=== PATIENT | male | born 1945 | race Caucasian/White ===

== ENCOUNTER → 2018-01-03 08:57 | Outpatient (CLI) | payer MEDICARE, OTHER, SELFPAY ==
--- NOTE | 2018-01-03 09:18 | HTC.HP4 ---
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 Grandfather Hemophilia Allergies/Adverse Reactions: Allergy/AdvReac Type Severity Reaction Status Date / Time Penicillins AdvReac Other Verified 01/03/18 12:48 Risk Factors Social History Smoking Status Never smoker Tobacco Risk Data: Tobacco Risk Smoking Status Never smoker Type of tobacco: Smokeless tobacco usage: Never Items/Day: Year started: Years used: Counseled to quit/cut down: Reason for no counseling performed: Reason for no pharmacotherapy: Tobacco use comments: Passive smoke exposure: Substance Risk Drug use: Caffeine use [drinks/day]: Alcohol use: Type of alcohol: Drinks per day: Has patient felt the need to cut down: Has the patient been annoyed by complaints: Has the patient felt guilty about drinking: Has the patient needed an eye internet security specialist in the mornings: Comments: Review of Systems Constitutional:: Denies: Fever, Sweats, Weight loss, Appetite change, Chills Cardiovascular:: Denies: Chest pain, Palpitations, Dyspnea on exertion, Orthopnea, PND, Shortness of breath Respiratory: Denies: Cough, Hemoptysis, Shortness of Breath, Wheezing Gastrointestinal:: Denies: Abdominal pain, Nausea, Vomiting, Diarrhea, Constipation, Hematochezia Genitourinary: Denies: Dysuria, Hematuria, 15, Flank pain Musculoskeletal:: Reports: Arthritis - right knee, may need surgery Occasional use of NSAIDS, Arthralgia, Restless legs. Denies: Back pain, Myalgia Skin: Denies: Rash, Skin Changes, Wounds Neurological:: Denies: Headache, Dizziness, Visual changes, Tinnitus, Hearing loss Psychiatric: Denies: Anxiety, Depression, Homicidal Ideations, Suicidal Ideations Comment: Took factor prior to colonoscopy. 2 accidental falls,. most recent injured left elbow, did not take factor. - Physical Exam General: Alert, Oriented x3, No apparent distress HEENT: Atraumatic, PERRLA, EOMI, Normocephalic Oropharynx:: Dry mucosa Neck:: Supple, Trachea midline. Negative for: JVD, bilateral Cardiac:: Regular rate, Regular rhythm, Normal S1, Normal S2. Negative for: Murmur Lungs: Clear to auscultation, Excusion symmetrical. Negative for: Rhonchi, Wheezes Abdomen:: Bowel sounds x 4, Soft, Non-tender, Non-distended. Negative for: Hepatosplenomegaly Extremities:: - - 2 cm left elbow hematoma, uncoplicated. Negative for: Cyanosis, Edema Neurological: Neuro grossly intact Skin:: Negative for: Lesions, Rash, Petechiae, Ecchymosis Psychiatric:: Appropriate affect, Euthymic Lymphatics:: Negative for: Cervical lymphadenopathy, Supraclavicular lymphadenopathy, Axillary lymphadenopathy Assessment and Plan Hemophilia annual screening visit. Reviewed: - On-demand therapy. - Appropriate oral hygiene and regular dental care is essential. - An appropriate exercise regimen encouraged for maintenance of a healthy weight, cardiovascular risk reduction, and positive effects on strength, flexibility, balance, joint stabilization, bone density, socialization, and psychological health. - Medicines that increase the risk of bleeding should be avoided namely anticoagulants, aspirin, and other nonsteroidal anti-inflammatory drugs (NSAIDs). - Herbal remedies and nfzc-dpq-eqbdlno supplements such as fish oil, may increase bleeding risk. - Pain can be treated with local measures (eg, cold packs, immobilization, splinting), and acetaminophen. - Cardiovascular disease prevention : focus on diet, exercise, smoking avoidance, and control of hypertension and hypercholesterolemia. - Planning for invasive procedures and elective surgery. - Caution with NSAIDS for DJD, - OFF ASA (was Rx following [facility]), due to bleeding with minor injuries. Patient was also evaluated by the Hemophilia multidisciplinary team on site and Dr Tello via video conferencing. Medications: Prescriptions This Visit Medication Instructions Recorded Aspirin [Aspir-Low] 81 mg PO DAILY 11/11/17 Primary Care Provider: Thang Tan Referring Provider:
[2018-01-03 12:49] VITALS: BP 112/74; PULSE 76; RESP 16; TEMP 36.6; O2SAT 96; BMI 28.6
== END ==
PROVIDERS: Family Provider Family Medicine; PCP Family Medicine; Visit Provider Internal Medicine Hematology & Oncology
DX: D67 Hereditary factor IX deficiency (principal)

== ENCOUNTER → 2018-08-08 10:41 | Outpatient (CLI) | payer MEDICARE, OTHER, SELFPAY ==
[2018-01-03 12:49] VITALS: BMI 28.6
--- NOTE | 2018-08-08 10:49 | RAD_ITS ---
STUDY: X-RAY CHEST REASON FOR EXAM: Male, 72 years old. Preop TECHNIQUE: Frontal and lateral views COMPARISON: None. FINDINGS: The lungs are clear and expanded. There is no demonstrated pleural abnormality. Normal size heart. Normal mediastinum and doug. Normal visualized pulmonary arteries. Normal visualized aortic arch and descending thoracic aorta. Degenerative changes of the thoracic spine. Normal visualized ribs, clavicles, and shoulders. There is no demonstrated abnormality of the visualized soft tissue structures of the upper abdomen. RAD/Chest PA and Lateral IMPRESSION: Normal x-ray examination of the chest. Electronically Signed: Alexandro Ahumada DO at 9:09 EST Tel [phone], Service support ,
--- NOTE | 2018-08-08 11:04 | EKG12_ITS ---
Test Reason : PRE OP Blood Pressure : / mmHG Vent. Rate : 062 BPM Atrial Rate : 062 BPM P-R Int : 180 ms QRS Dur : 140 ms QT Int : 400 ms P-R-T Axes : 043 -75 011 degrees QTc Int : 406 ms Normal sinus rhythm Right bundle branch block Left anterior fascicular block Bifascicular block Abnormal ECG Confirmed by MICHEAL PRITCHETT, JOHN ([id number]), publications editor FRANKIE WESTON ([id number]) on 08/12/2018 2:15:24 PM Referred By: Navdeep Weston Confirmed By:JOHN BURTON MD
--- OUTSIDE RECORDS SUMMARY | 2018-10-03 06:51 | XMS RPT_ITS ---
:1945 Author Organization [facility] Care Team Providers Name Role Phone Tavo Burton Attending Unavailable Navdeep Rodriguez Referring Unavailable Thang Tan Attending Unavailable Thang Tan Primary Care Unavailable Jacinto Lobato Attending Unavailable Thang Tan Primary Care Unavailable Jacinto Lobato Attending Unavailable Thang Tan Primary Care Unavailable Jacinto Lobato Consulting Unavailable Navdeep Rodriguez Attending Unavailable Navdeep Rodriguez Referring Unavailable Thang Tan Primary Care Unavailable PROBLEMS PROBLEMS DATE TYPE CONDITION / CODE ATTENDING STATUS SOURCE 08/18/2018 Unknown I45.10 - Unspecified [place], Active [facility] right bundle-branch [facility] block / I45.10(ICD-10) Hospital Repository 08/18/2018 Unknown R94.31 - Abnormal [place], Active [facility] electrocardiogram [facility] [ECG] [EKG] / Hospital R94.31(ICD-10) Repository 08/08/2018 Unknown Z01.810 - Encounter Navdeep Rodriguez Active [facility] for preprocedural [facility] cardiovascular [facility] examination / Repository Z01.810(ICD-10) 08/08/2018 Unknown Z01.811 - Encounter Navdeep Rodriguez Active [facility] for preprocedural [facility] examination / Repository Z01.811(ICD-10) PROCEDURES PROCEDURES No Procedure Records FoundRESULTS RESULTS 12 LEAD ELECTROCARDIOGRAM Observed: 08/12/2018 Status: F Source: [place] 2:16 PM [facility] Cardiovascular Services [address] [place] [address] 12 Lead EKG 08/08/18 1116 MR#: [id number] Acct: [id number] Name: REMY FINNEGAN Rep #: [id number] : 1945 72 From: Tavo Burton MD Attending Dr: Navdeep Rodriguez MD Status: REG CLI Ordering Dr: Navdeep Rodriguez MD Date: 08/08/18 Location: [facility] Sex: M C Admitted: Test Reason : PRE OP Blood Pressure : / mmHG Vent. Rate : 062 BPM Atrial Rate : 062 BPM P-R Int : 180 ms QRS Dur : 140 ms QT Int : 400 ms P-R-T Axes : 043 -75 011 degrees QTc Int : 406 ms Normal sinus rhythm Right bundle branch block Left anterior fascicular block Bifascicular block Abnormal ECG Confirmed by MICHEAL PRITCHETT, TAVO ([id number]), editor department FRANKIE RODRIGUEZ ([id number]) on 08/12/2018 2:15:24 PM Referred By: Navdeep Rodriguez Confirmed By:TAVO BURTON MD 08/12/18 1415 Date Tavo Burton MD CC: Thang Tan MD; Navdeep Rodriguez MD Signed CHEST PA AND LATERAL Observed: 08/08/2018 Status: F Source: [place] 10:50 AM [facility] Imaging Services [address] [place] [address] Chest PA and Lateral MR#: [id number] Acct: [id number] Name: REMY FINNEGAN Rep #: [id number] : 1945 M 72 From: Alexandro Ahumada DO PCP: Thang Tan MD Status: REG CLI Study: Chest PA and Lateral Date of Exam: 08/08/18 Exam# [id number] Ordering Dr: Navdeep Rodriguez MD STUDY: X-RAY CHEST REASON FOR EXAM: Male, 72 years old. Preop TECHNIQUE: Frontal and lateral views COMPARISON: None. FINDINGS: The lungs are clear and expanded. There is no demonstrated pleural abnormality. Normal size heart. Normal mediastinum and doug. Normal visualized pulmonary arteries. Normal visualized aortic arch and descending thoracic aorta. Degenerative changes of the thoracic spine. Normal visualized ribs, clavicles, and shoulders. There is no demonstrated abnormality of the visualized soft tissue structures of the upper abdomen. RAD/Chest PA and Lateral IMPRESSION: Normal x-ray examination of the chest. Electronically Signed: Alexandro Ahumada DO at 9:09 EST Tel [phone], Service support , CC: Thang Tan MD; Navdeep Rodriguez MD Unix Administrator: Signed C: OFFICE NOTE Observed: 01/03/2018 Status: F Source: JULIAN 1:21 PM [facility] Medical Records Department [address] [place] [address] HTC: Office Note 01/03/18 0918 MR#: [id number] Acct: [id number] Name: REMY FINNEGAN Rep #: [id number] : 1945 72 From: Jacinto Lobato MD PCP: Thang Tan MD Status: REG CLI Y Location: [facility]MD - Problem List (1) Hemophilia B Status: Chronic Subjective Date of Service:: 01/03/18 Chief Complaint: Hemophilia follow-up History of Present Illness: 72-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 Grandfather Hemophilia Allergies/Adverse Reactions: Allergy/AdvReac Type Severity Reaction Status Date / Time Penicillins AdvReac Other Verified 01/03/18 12:48 Risk Factors Social History Smoking Status Never smoker Tobacco Risk Data: Tobacco Risk Smoking Status Never smoker Type of tobacco: Smokeless tobacco usage: Never Items/Day: Year started: Years used: Counseled to quit/cut down: Reason for no counseling performed: Reason for no pharmacotherapy: Tobacco use comments: Passive smoke exposure: Substance Risk Drug use: Caffeine use [drinks/day]: Alcohol use: Type of alcohol: Drinks per day: Has patient felt the need to cut down: Has the patient been annoyed by complaints: Has the patient felt guilty about drinking: Has the patient needed an eye manager inspection in the mornings: Comments: Review of Systems Constitutional:: Denies: Fever, Sweats, Weight loss, Appetite change, Chills Cardiovascular:: Denies: Chest pain, Palpitations, Dyspnea on exertion, Orthopnea, PND, Shortness of breath Respiratory: Denies: Cough, Hemoptysis, Shortness of Breath, Wheezing Gastrointestinal:: Denies: Abdominal pain, Nausea, Vomiting, Diarrhea, Constipation, Hematochezia Genitourinary: Denies: Dysuria, Hematuria, 15, Flank pain Musculoskeletal:: Reports: Arthritis - right knee, may need surgery Occasional use of NSAIDS, Arthralgia, Restless legs. Denies: Back pain, Myalgia Skin: Denies: Rash, Skin Changes, Wounds Neurological:: Denies: Headache, Dizziness, Visual changes, Tinnitus, Hearing loss Psychiatric: Denies: Anxiety, Depression, Homicidal Ideations, Suicidal Ideations Comment: Took factor prior to colonoscopy. 2 accidental falls,. most recent injured left elbow, did not take factor. - Physical Exam General: Alert, Oriented x3, No apparent distress HEENT: Atraumatic, PERRLA, EOMI, Normocephalic Oropharynx:: Dry mucosa Neck:: Supple, Trachea midline. Negative for: JVD, bilateral Cardiac:: Regular rate, Regular rhythm, Normal S1, Normal S2. Negative for: Murmur Lungs: Clear to auscultation, Excusion symmetrical. Negative for: Rhonchi, Wheezes Abdomen:: Bowel sounds x 4, Soft, Non-tender, Non-distended. Negative for: Hepatosplenomegaly Extremities:: - - 2 cm left elbow hematoma, uncoplicated. Negative for: Cyanosis, Edema Neurological: Neuro grossly intact Skin:: Negative for: Lesions, Rash, Petechiae, Ecchymosis Psychiatric:: Appropriate affect, Euthymic Lymphatics:: Negative for: Cervical lymphadenopathy, Supraclavicular lymphadenopathy, Axillary lymphadenopathy Assessment and Plan Hemophilia annual screening visit. Reviewed: - On-demand therapy. - Appropriate oral hygiene and regular dental care is essential. - An appropriate exercise regimen encouraged for maintenance of a healthy weight, cardiovascular risk reduction, and positive effects on strength, flexibility, balance, joint stabilization, bone density, socialization, and psychological health. - Medicines that increase the risk of bleeding should be avoided namely anticoagulants, aspirin, and other nonsteroidal anti-inflammatory drugs (NSAIDs). - Herbal remedies and idnk-jqn-lychqyg supplements such as fish oil, may increase bleeding risk. - Pain can be treated with local measures (eg, cold packs, immobilization, splinting), and acetaminophen. - Cardiovascular disease prevention : focus on diet, exercise, smoking avoidance, and control of hypertension and hypercholesterolemia. - Planning for invasive procedures and elective surgery. - Caution with NSAIDS for DJD, - OFF ASA (was Rx [facility]), due to bleeding with minor injuries. Patient was also evaluated by the Hemophilia multidisciplinary team on site and Dr Tello via video conferencing. Medications: Prescriptions This Visit Medication Instructions Recorded Aspirin [Aspir-Low] 81 mg PO DAILY 11/11/17 Primary Care Provider: Thang Tan Referring Provider: 01/03/18 1321 <Electronically signed by Jacinto Lobato MD> Date Jacinot Lobato MD Cosigner Signature (if applicable): Date CC: Signed CBC-COMPLETE BLOOD CNT Collected: 09/17/2017 Status: F Source: [place] NO DIFF 10:32 AM [facility] Order Comment: Order Date: 09/17/17 Order Info: [id number] - CBC TYPE CODE TESTS RESULT OUT OF RANGE REFERENCE UNITS LAB L100.1000 4.4-11.0 K/mm3 Normal WBC 6.5 LAB L100.1200 4.6-6.2 M/mm3 Low RBC 4.31 LAB L100.1300 13.0-16.5 g/dl Normal HGB 13.1 LAB L100.1400 40-54 % Normal HCT 40.2 LAB L100.1500 80-94 fL Normal MCV 93.3 LAB L100.1600 27.0-32.0 pg Normal MCH 30.4 LAB L100.1700 32-36 g/gl Normal MCHC 32.6 LAB L100.1810 11.6-14.6 % Normal RDW CV 13.3 LAB L100.1820 35.1-43.9 fl High RDW SD 45.5 LAB L100.1900 150-450 K/mm3 Normal PLT 247 LAB L100.2000 6.2-12.0 fl Normal MPV 9.4 Performed By: #### L100.0500, L500.4050 #### [facility] [address] [place], [place], [address] COMPREHENSIVE METABOLIC Collected: 09/17/2017 Status: F Source: [place] PROFIL 10:32 AM [facility] Order Comment: Order Date: 09/17/17 Order Info: [id number] - CMP TYPE CODE TESTS RESULT OUT OF RANGE REFERENCE UNITS LAB L501.0100 70-110 mg/dL Normal GLU 84 LAB L501.1000 7-18 mg/dL Normal BUN 17 LAB L501.1100 0.70-1.30 mg/dL Normal 0.70 CREAT,SERUM Result Comment: The validity of the calculated GFR AND GFRAA in patients over 70 years has not been determined. Clinical correlation is essential. LAB L501.1110 >60 mL/min Normal EST GFR 119 Result Comment: Non- GFR Calc LAB L501.1115 >60 mL/min Normal EST GFR - AA 144 Result Comment: GFR Calc LAB L501.1300 10-20 RATIO High BUN/CRE 24.4 LAB L501.1500 6.4-8.2 g/dL T Normal PROT 7.3 LAB L501.1800 3.4-5.0 g/dL Normal ALB 3.7 Result Comment: Please note revised Albumin AND Globulin reference range effective 2017. LAB L501.1950 2.2-4.2 g/dL Normal GLOB 3.6 LAB L501.2000 0.9-2.4 RATIO Normal A/G 1.0 LAB L501.2200 8.5-10.1 mg/dL Normal CA 8.6 LAB L501.4100 15-37 U/L Normal AST 19 LAB L501.4305 45-117 U/L Normal ALK P 74 LAB L501.4405 12-78 U/L Normal ALT 36 LAB L501.4600 0.20-1.00 mg/dL Normal T BILI 0.60 LAB L501.5300 136-145 mmol/L Normal NA 139 LAB L501.5600 3.5-5.1 mmol/L Normal K 4.3 LAB L501.5900 98-107 mmol/L Normal CL 106 LAB L501.6100 21.0-32.0 mmol/L Normal CO2 24.0 LAB L501.6200 5-15 Normal GAP 9 Performed By: #### L100.0500, L500.4050 #### [facility] [address] [place], [address] ALLERGIES ALLERGIES DATE TYPE / CODE NAME / CODE REACTION SEVERITY SOURCE 01/03/2018 Drug Penicillins/ Other Unknown [facility] Allergy/4160 [id number](R [facility] [address]37(SNOMED XNORM) Repository CT) ENCOUNTERS ENCOUNTERS ADMIT/DISCHARGE ACCOUNT ADMITTING ENCOUNTER LOCATION SOURCE NUMBER CLASS 08/08/2018 [id number] Ambulatory BMSBuilding:W [facility] 6 [facility] Repository 08/08/2018 [id number] Ambulatory [place] [facility] 2 [facility] ing:RAD Repository 01/03/2018 [id number] Ambulatory [place] 0 [facility] ing:OMD Repository 01/03/2018 [id number] Ambulatory BMSBuilding:B [place] 1 MS.[facility] Repository 09/17/2017 [id number] Ambulatory [facility] 5 [facility] ing:MFPLAB Repository PAYERS PAYERS ENCOUNTER GUARANTOR PAYER SUBSCRIBER SOURCE 08/08/2018 [place] A Primary REMY A [place] [id number] Insurance:MEDICARE TROYERDOB: Community FREASE PART A [address] Number: Repository , [place] [address]Fua: [id number] Date:2018-08-08 () 08/08/2018 Secondary REMY A [place] Insurance:AETNA SR TROYERDOB: [facility] SUPPLEMENT [place] [id number] [place] [address] Number: Repository [id number] Date:[id number] SENIOR SUPPLEMENT [address] [place] [address]YB: 08/08/2018 Tertiary NOT GIVENUNK [facility] Insurance:SELF PAY [facility] Number: Effective Repository Date:2018-08-08 08/08/2018 REMY A Primary REMY A [facility] [id number] Insurance:MEDICARE TROYERDOB: Community FREASE PART A [place] [id number] Number: Repository , [place] [address]Rhv: [id number] Date:2018-08-08 () 08/08/2018 Secondary REMY A [place] Insurance:AETNA SR TROYERDOB: [facility] SUPPLEMENT [place] [id number] Number: Repository [id number] Date:6114-11-76REKIP SENIOR SUPPLEMENT [address] [place] [address]MI: 08/08/2018 Tertiary NOT GIVENUNK [place] Insurance:SELF PAY [facility] Number: Effective Repository Date:2018-08-08 01/03/2018 Remy A Primary Remy A [place] [id number] Insurance:MEDICARE TroyerDOB: Community FREASE PART A [address] Number: Repository , [place] [address]Ozs: [id number] Date:2017-10-14 () 01/03/2018 Secondary Remy A [place] Insurance:AETNA SR TroyerDOB: [id number] Number: Repository [id number] Date:[id number] SENIOR SUPPLEMENT [address] [address], [place] [address]FF: 01/03/2018 Tertiary NOT GIVENUNK [facility] Insurance:SELF PAY [facility] Effective Repository Date:2017-10-14 01/03/2018 Remy A Primary Remy A [place] [id number] Insurance:MEDICARE TroyerDOB: Community FREASE PART A [facility] [id number] Number: Repository [place], [place] [address]Vho: [id number] Date:2017-10-14 () 01/03/2018 Secondary Remy A [place] Insurance:AETNA SR TroyerDOB: Community SUPPLEMENT [facility] [id number] Number: Repository [id number] Date:[id number] SENIOR SUPPLEMENT [address] [address], [place] [address]CC: 01/03/2018 Tertiary NOT GIVENUNK [place] Insurance:SELF PAY [facility] Number: Effective Repository Date:2018-01-03 09/17/2017 Remy A Primary Remy A [place] [id number] Insurance:MEDICARE TroyerDOB: Community Frease PART A [facility] [id number] Number[facility] Repository , [place] [address]Zvt: [id number] Date:2017-09-17 () 09/17/2017 Secondary Remy A [place] Insurance:AETNA SR TroyerDOB: Community SUPPLEMENT [facility] [id number] Hospital Number: Repository [id number] Date:[id number] SENIOR SUPPLEMENT [address] [address], [place] [address]IY: 09/17/2017 Tertiary NOT GIVENUNK [place] Insurance:SELF PAY [facility] Number: Effective Repository Date:2017-09-17
== END ==
PROVIDERS: Family Provider Family Medicine; PCP Family Medicine; Referring Provider Orthopaedic Surgery; Visit Provider Orthopaedic Surgery
DX: Z01.810 Encounter for preprocedural cardiovascular examination (principal); Z01.811 Encounter for preprocedural respiratory examination
CPT/HCPCS: 71046; 93005

== ENCOUNTER → 2018-10-09 06:54 | Outpatient (CLI) | payer MEDICARE, OTHER, SELFPAY ==
[2018-09-25 15:01] VITALS: BMI 29.0
--- NOTE | 2018-10-09 06:58 | ECHOD_ITS ---
Reason For Study: CAD/ASHD Procedure This was a 2D Doppler, Color Flow transthoracic echocardiogram. The exam was of adequate technical quality. Exam performed in department. Left Ventricle Normal LV size. Left ventricular systolic function is normal. The estimated ejection fraction is 60 %. No evidence for diastolic dysfunction. No regional wall motion abnormalities noted. Right Ventricle Normal RV size. Normal systolic function. Atria The left atrium is mildly enlarged. Normal right atrium. No doppler evidence for ASD. Mitral Valve There is no mitral annular calcification. Normal mitral valve. Trivial mitral valve insufficiency. Tricuspid Valve Normal tricuspid valve. Trivial tricuspid valve insufficiency. Aortic Valve Trisinus/trileaflet aortic valve. Moderate focal aortic valve calcification. Trivial aortic valve insufficiency. Pulmonic Valve The pulmonic valve is not well visualized. Great Vessels Normal sized aortic root. Calcified aortic root. Pericardium/Pleural No pericardial effusion. MMode/2D Measurements & Calculations LVIDd: 5.1 cm IVSd: 1.1 cm Ao root diam: 3.4 cm LVIDs: 3.5 cm LVPWd: 1.1 cm RVDd: 3.2 cm FS: 31.1 % LAV(MOD-bp): 56.8 ml LA A4 area: 20.1 cm2 LA dimension(2D): 3.5 cm LAV(MOD-bp) Indexed: 27.2 ml/m2 LAV(MOD-sp2): 51.4 ml LAV(MOD-sp4): 59.1 ml RA A4 area: 16.1 cm2 Doppler Measurements & Calculations MV E max duncan: 83.9 cm/sec Lat Peak E' Duncan: 8.3 cm/sec Med Peak E' Duncan: 6.8 cm/sec MV A max duncan: 95.0 cm/sec E/E' lat: 10.0 E/E' med: 12.3 MV E/A: 0.88 Ao V2 max: 150.5 cm/sec LV V1 max: 143.8 cm/sec PA V2 max: 69.1 cm/sec Ao max P.1 mmHg LV V1 max P.7 mmHg Interpretation Summary Left ventricular systolic function is normal. The estimated ejection fraction is 60 %. The left atrium is mildly enlarged. Trivial mitral valve insufficiency. Trivial tricuspid valve insufficiency. Moderate focal aortic valve calcification. Trivial aortic valve insufficiency. Calcified aortic root. No evidence for diastolic dysfunction. Ordering Physician: Tavo Nuñez Referring Physician: Thang Tan Performed By: Leatha Love RDCS, RVT
--- NOTE | 2018-10-09 19:59 | STRESSREP ---
Stress Test Report Date: October 09, 2018 Procedure: Pharmacologic stress nuclear imaging study Indication: Abnormal ECG; preoperative cardiovascular evaluation Consent: Per the patient Procedure: The patient underwent pharmacologic (regadenoson) evaluation with a peak heart rate of 92 beats per minute (67% predicted maximal heart rate) with a peak blood pressure of 142/80 mmHg. The baseline ECG demonstrated underlying sinus bradycardia with a right bundle branch block pattern. The peak pharmacological ECG demonstrated no obvious ECG changes. There were no cardiac dysrhythmias pretest, during pharmacologic infusion, or recovery. There was no report of chest discomfort during pharmacologic infusion or recovery. The examination was discontinued secondary to completion of protocol. Impression: 1. Pharmacologic (regadenoson (evaluation 2. Peak pharmacologic ECG with no obvious ECG changes 3. Nuclear images pending Myocardial perfusion imaging study: Technique: The patient was injected with 11.8 mci of technetium 99 M Cardiolite and subsequently rest SPECT Cardiolite nuclear imaging was obtained in the horizontal long, vertical long, and short axis views. The patient underwent pharmacologic (regadenoson (evaluation with a peak heart rate of 92 beats per minute (67% predicted maximal heart rate) with a peak blood pressure of 142/80 mmHg. The patient was injected with 33.9 mci of technetium 99 M Cardiolite and subsequently stress SPECT Cardiolite nuclear imaging was obtained in the horizontal long, vertical long, and short axis views. A gated Cardiolite study at peak stress was obtained. Interpretation: Rest and stress SPECT currently nuclear imaging demonstrates status post realignment, normalization, and attenuation correction, the appearance of extra cardiac/gastrointestinal tracer uptake. There is notation of a small area of subtle diminished tracer uptake near the apical segments without significant change between rest and stress. Otherwise there appears to be relative uniform tracer uptake and myocardial perfusion appearing within normal limits. There is end systolic thickening and brightening. The gated Cardiolite study demonstrates myocardial thickening and inward wall motion. The reported LVEF is 71%. Impression: 1. Rest and stress SPECT pertinent nuclear imaging demonstrate myocardial perfusion changes appearing compatible the Effexor soft tissue attenuation/artifact and or physiologic apical thinning with no myocardial perfusion changes considered diagnostic for associated stress induced myocardial ischemia or previous myocardial injury/infarction. 2. The gated Cardiolite study reports an LVEF of 71%. This note was generated using a voice recognition system and there may be incorrect words, spelling or punctuation that were not noted when reviewing the office note prior to saving.
== END ==
PROVIDERS: Family Provider Family Medicine; PCP Family Medicine; Referring Provider Internal Medicine Cardiovascular Disease; Visit Provider Internal Medicine Cardiovascular Disease
DX: Z01.810 Encounter for preprocedural cardiovascular examination (principal); R94.31 Abnormal electrocardiogram [ECG] [EKG]
CPT/HCPCS: 78452; 93017; 93306; A9500; A4216; J2785

== ENCOUNTER → 2018-12-25 10:57 | Outpatient (CLI) | payer MEDICARE, OTHER, SELFPAY ==
[2018-09-25 15:01] VITALS: BMI 29.0
== END ==
PROVIDERS: Family Provider Family Medicine; PCP Family Medicine; Referring Provider Internal Medicine Hematology & Oncology; Visit Provider Internal Medicine Hematology & Oncology
DX: D67 Hereditary factor IX deficiency (principal)

== ENCOUNTER → 2019-01-02 11:38 | Outpatient (CLI) | payer MEDICARE, OTHER, SELFPAY ==
[2018-09-25 15:01] VITALS: BMI 29.0
--- NOTE | 2019-01-02 08:39 | HTC.HP4 ---
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, annual follow-up Right knee replacement December 2018 recovering well, received factor perioperatively and did well On low-dose aspirin for DVT prophylaxis postop Health History: Past Medical History (Last Reviewed 09/25/18 @ 15:03 by Jennifer Osuna) Left anterior fascicular block (LAFB) (Acute) LBBB (left bundle branch block) (Acute) Abnormal EKG (Acute) Hemophilia B (Acute) Hepatitis (Acute) Hyperlipidemia (Acute) Polio (Acute) Right wrist injury (Acute) Stroke (Acute) Family History (Last Reviewed 09/25/18 @ 15:03 by Jennifer Osuna) Brother Hemophilia Grandfather Hemophilia Mother Diabetes CVA (cerebral vascular accident) Allergies/Adverse Reactions: Allergy/AdvReac Type Severity Reaction Status Date / Time atorvastatin AdvReac Severe Rt Verified 09/25/18 15:01 shoulder pain pitavastatin [From Livalo] AdvReac Severe muscle Verified 09/25/18 15:01 weakness aspirin AdvReac Bleeding Verified 01/02/19 11:51 Penicillins AdvReac Other Verified 09/25/18 15:01 Risk Factors Social History Smoking Status Never smoker Tobacco Risk Data: Tobacco Risk Smoking Status Never smoker Type of tobacco: Smokeless tobacco usage: Items/Day: Year started: Years used: Counseled to quit/cut down: Reason for no counseling performed: Reason for no pharmacotherapy: Tobacco use comments: Passive smoke exposure: Substance Risk Drug use: Caffeine use [drinks/day]: Alcohol use: Type of alcohol: Drinks per day: Has patient felt the need to cut down: Has the patient been annoyed by complaints: Has the patient felt guilty about drinking: 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: Comments: Review of Systems Constitutional:: Denies: Fever, Sweats, Weight loss, Appetite change, Chills Cardiovascular:: Denies: Chest pain, Palpitations, Dyspnea on exertion, Orthopnea, PND, Shortness of breath Respiratory: Denies: Cough, Hemoptysis, Shortness of Breath, Wheezing Gastrointestinal:: Denies: Abdominal pain, Nausea, Vomiting, Diarrhea, Constipation, Hematochezia Genitourinary: Denies: Dysuria, Hematuria, 15, Flank pain Musculoskeletal:: Denies: Back pain, Myalgia, Arthralgia Skin: Denies: Rash, Skin Changes, Wounds Neurological:: Denies: Headache, Dizziness, Visual changes, Tinnitus, Hearing loss Psychiatric: Denies: Anxiety, Depression, Homicidal Ideations, Suicidal Ideations Comment: Undergoing physical therapy post knee surgery - Physical Exam General: Alert, Oriented x3, No apparent distress HEENT: Atraumatic, PERRLA, EOMI, Normocephalic Oropharynx:: Dry mucosa Neck:: Supple, Trachea midline. Negative for: JVD, bilateral Cardiac:: Regular rate, Regular rhythm, Normal S1, Normal S2. Negative for: Murmur Lungs: Clear to auscultation, Excusion symmetrical. Negative for: Rhonchi, Wheezes Abdomen:: Soft, Non-tender, Non-distended. Negative for: Hepatosplenomegaly Extremities:: - - Right knee surgical incision healing well, no bruising. Negative for: Cyanosis, Edema Neurological: Neuro grossly intact Skin:: Negative for: Lesions, Rash, Petechiae, Ecchymosis Psychiatric:: Appropriate affect, Euthymic Lymphatics:: Negative for: Cervical lymphadenopathy, Supraclavicular lymphadenopathy Assessment and Plan 1-Hemophilia annual screening visit. Reviewed: - On-demand therapy. - Appropriate oral hygiene and regular dental care is essential. - An appropriate exercise regimen encouraged for maintenance of a healthy weight, cardiovascular risk reduction, and positive effects on strength, flexibility, balance, joint stabilization, bone density, socialization, and psychological health. - Medicines that increase the risk of bleeding should be avoided namely anticoagulants, aspirin, and other nonsteroidal anti-inflammatory drugs (NSAIDs). - Herbal remedies and dees-kvk-reirfle supplements such as fish oil, may increase bleeding risk. - Pain can be treated with local measures (eg, cold packs, immobilization, splinting), and acetaminophen. - Cardiovascular disease prevention : focus on diet, exercise, smoking avoidance, and control of hypertension and hypercholesterolemia. - Planning for invasive procedures and elective surgery. #2-Stop low-dose aspirin for DVT prophylaxis post knee surgery now Patient was also evaluated by the Hemophilia multidisciplinary team on site and Dr Tello via video conferencing. Primary Care Provider: Dave Tan MD Referring Provider:
[2019-01-02 11:52] VITALS: BP 125/75; PULSE 72; RESP 16; TEMP 36.7; O2SAT 99; BMI 27.6
== END ==
PROVIDERS: Family Provider Family Medicine; PCP Family Medicine; Visit Provider Internal Medicine Hematology & Oncology
DX: D67 Hereditary factor IX deficiency (principal)

== ENCOUNTER → 2020-10-14 10:32 | Outpatient (CLI) | payer MEDICARE, OTHER, SELFPAY ==
[2020-04-11 10:21] VITALS: BMI 29.6
--- NOTE | 2020-10-14 11:28 | VDLE_ITS ---
Reason For Study: AMAUROSIS FUGAX RIGHT LEFT GSV is normal. CFV is compressible, spontaneous, phasic, CFV is compressible, spontaneous, phasic, competent, and demonstrates normal competent and demonstrates normal augmentation. augmentation. FV is compressible, spontaneous, phasic, competent and demonstrates normal augmentation. POP V is compressible, spontaneous, phasic, competent and demonstrates normal augmentation. T/P Trunk is compressible. PTV is compressible. RT PerV is compressible. Procedure This is a venous duplex using B-mode, color flow and spectral Doppler. Exam performed in department. The exam was diagnostic. A preliminary report was called and/or faxed to Dr. Mora @ 11:45 am. Interpretation Summary Deep veins of the right lower extremity are patent and compressible segmentally. There is no evidence of right lower extremity deep vein thrombosis. Valvular competence appears intact within the proximal deep venous system on the right . The right great saphenous vein appears patent and compressible segmentally. Ordering Physician: Cristy Mora Referring Physician: Cristy Mora Performed By: Leatha Love, LUIZ, RVT
== END ==
PROVIDERS: PCP Family Medicine; Referring Provider Family Medicine; Visit Provider Family Medicine
DX: M79.89 Other specified soft tissue disorders (principal)
CPT/HCPCS: 93971

== ENCOUNTER → 2021-01-17 | Outpatient (CLI) | payer MEDICARE, OTHER, SELFPAY ==
[2020-04-11 10:21] VITALS: BMI 29.6
== END | disposition home or self-care (01) ==
LOC: LABSPEC 15:26
PROVIDERS: PCP Family Medicine; Visit Provider Otolaryngology Otolaryngology/Facial Plastic Surgery
DX: J32.9 Chronic sinusitis, unspecified (principal)
CPT/HCPCS: 87070; 87077; 87205

== ENCOUNTER → 2021-05-02 08:02 | Outpatient (CLI) | payer MEDICARE, OTHER, SELFPAY ==
[2020-04-11 10:21] VITALS: BMI 29.6
--- NOTE | 2021-05-02 08:05 | CT_ITS ---
STUDY: CT MAXILLOFACIAL SINUSES REASON FOR EXAM: Male, 75 years old. CHRONIC SINUITIS RADIATION DOSAGE (If Supplied By Facility): CTDIvol = ( 33.06 ) mGy, DLP = ( 1617.09 ) mGycm TECHNIQUE: The patient was scanned in a multi detector CT scanner. High resolution axial imaging was performed without the administration of intravenous contrast material. Sagittal and coronal images were reconstructed. Individualized dose optimization techniques were used for this CT. COMPARISON: None. FINDINGS: FRONTAL SINUSES: Complete opacification of the left frontal sinuses. Right frontal sinuses are clear. ETHMOIDAL SINUSES: Complete opacification of the anterior left ethmoid air cells. The posterior left and right ethmoid air cells are patent. MAXILLARY SINUSES: Complete opacification of the left maxillary sinus with expansion of the ostiomeatal unit and soft tissue density extending into the nasal cavity. Right maxillary sinus is clear. SPHENOIDAL SINUSES: Normal aeration, without mucosal inflammatory disease. There is patency of the right maxillary infundibulum with normal uncinate process, ethmoid bullae, and hiatus semilunaris. Normal bilateral middle turbinates. Normal bilateral inferior turbinates. Normal midline nasal septum. There is patency of the bilateral nasal airways. The visualized osseous structures are normal. The visualized bilateral orbital contents are normal. Periapical lucency of left maxillary tooth extends to the left maxillary sinus (image 105 series 605). CT/Sinus/Facial Bone IMPRESSION: 1. Left maxillary, anterior ethmoid and left frontal sinusitis; OMU obstruction pattern. 2. Left maxillary periapical lucency extends to the maxillary sinus. Electronically Signed: Marc Metz MD (Brooks) at 12:08 EDT , Service support ,
== END ==
PROVIDERS: PCP Family Medicine; Referring Provider Otolaryngology Otolaryngology/Facial Plastic Surgery; Visit Provider Otolaryngology Otolaryngology/Facial Plastic Surgery
DX: J32.9 Chronic sinusitis, unspecified (principal)
CPT/HCPCS: 70486

== ENCOUNTER → 2022-04-30 | Outpatient (CLI) | payer MEDICARE, OTHER, SELFPAY ==
--- NOTE | 2022-04-30 10:56 | ECHOD_ITS ---
Reason For Study: ABN EKG Procedure This was a 2D Doppler, Color Flow transthoracic echocardiogram. Exam performed in department. Left Ventricle Normal LV size. Left ventricular systolic function is normal. The estimated ejection fraction is 60 %. Diastolic function is indeterminate. No regional wall motion abnormalities noted. Right Ventricle Normal RV size. Normal systolic function. Atria The left atrium is mildly enlarged. Normal right atrium. No doppler evidence for ASD. Bubble contrast study negative for right to left interatrial shunt. Mitral Valve There is no mitral annular calcification. Normal mitral valve. Trivial mitral valve insufficiency. Tricuspid Valve Normal tricuspid valve. Trivial tricuspid valve insufficiency. Unable to estimate RV systolic pressure due to insufficient tricuspid regurgitant envelope. Aortic Valve Trisinus/trileaflet aortic valve. Normal aortic valve. Trivial aortic valve insufficiency. Pulmonic Valve The pulmonic valve is not well visualized. Trivial pulmonic valve insufficiency. Great Vessels Normal sized aortic root. Pericardium/Pleural No pericardial effusion. Medication 22 gauge I.V. with prn adaptor inserted into right arm. Performed a rapid injection of agitated mix of 9 cc saline and 1cc air to assess for atrial septal defect. MMode/2D Measurements & Calculations Ao root diam: 3.7 cm LAV(MOD-bp): 71.4 ml LVAd ap4: 30.8 cm2 LAV(MOD-bp) Indexed: 34.2 ml/m2 LVLd ap4: 8.8 cm LAV(MOD-sp2): 51.2 ml EDV(MOD-sp4): 90.0 ml LAV(MOD-sp4): 78.1 ml EDV(sp4-el): 91.7 ml LVAs ap4: 17.7 cm2 LVLs ap4: 7.5 cm ESV(MOD-sp4): 35.2 ml ESV(sp4-el): 35.1 ml EF(MOD-sp4): 60.9 % EF(sp4-el): 61.8 % SV(MOD-sp4): 54.8 ml SV(sp4-el): 56.6 ml LA A4 area: 24.4 cm2 RA A4 area: 12.7 cm2 Time Measurements MV dec time: 0.22 sec Doppler Measurements & Calculations MV E max duncan: 72.9 cm/sec Lat Peak E' Duncan: 6.4 cm/sec Med Peak E' Duncan: 5.3 cm/sec MV A max duncan: 85.3 cm/sec E/E' lat: 11.4 E/E' med: 13.8 MV E/A: 0.85 MV V2 max: 96.0 cm/sec MV dec slope: 332.7 cm/sec2 Ao V2 max: 151.2 cm/sec MV max P.7 mmHg Ao max P.1 mmHg MV V2 mean: 57.1 cm/sec Ao V2 mean: 98.2 cm/sec MV mean P.5 mmHg Ao mean P.5 mmHg MV V2 VTI: 34.8 cm Ao V2 VTI: 33.1 cm LV V1 max: 111.0 cm/sec PA V2 max: 107.9 cm/sec LV V1 max P.9 mmHg LV V1 mean P.5 mmHg LV V1 mean: 74.5 cm/sec LV V1 VTI: 24.0 cm ECHO/Echo Complete Interpretation Summary Left ventricular systolic function is normal. The estimated ejection fraction is 60 %. The left atrium is mildly enlarged. Trivial mitral valve insufficiency. Trivial tricuspid valve insufficiency. Trivial aortic valve insufficiency. Trivial pulmonic valve insufficiency. Unable to estimate RV systolic pressure due to insufficient tricuspid regurgita nt envelope. Diastolic function is indeterminate. Ordering Physician: Dave Tan Referring Physician: Dave Tan Performed By: Shari Graham RCS
== END | disposition home or self-care (01) ==
LOC: CVS 10:55
PROVIDERS: PCP Family Medicine; Referring Provider Family Medicine; Visit Provider Family Medicine
DX: R94.31 Abnormal electrocardiogram [ECG] [EKG] (principal); Z86.73 Personal history of transient ischemic attack (TIA), and cerebral infarction without residual deficits
CPT/HCPCS: 93306; A4216

== ENCOUNTER → 2022-05-15 | Outpatient (CLI) | payer MEDICARE, OTHER, SELFPAY ==
[2022-05-15 10:16] LABS: ALB/GLOB Ratio 0.9 RATIO (0.9-2.4); AST(SGOT) 21 U/L (15-37); Alanine Aminotransfer ALT/SGPT 33 U/L (16-61); Albumin, Serum 3.5 g/dL (3.2-5.0); Alkaline Phosphatase 73 U/L (45-117); Anion Gap 7 (5-15); BUN 16 mg/dL (7-18); Calcium,Total 8.9 mg/dL (8.5-10.1); Chloride 105 mmol/L (98-107); Cholesterol 257 mg/dL (200); Creatinine, Serum 0.84 mg/dL (0.70-1.30); EST Glomerular Filtration Rate 94 mL/min (>60); Est Glom Filt Rate - Afr Amer 114 mL/min (>60); Globulin 3.8 g/dL (2.2-4.2); Glucose 99 mg/dL (74-106); High Density Lipoprotein 44 mg/dL; PSA,Total - Annual Screen 2.44 ng/mL (0.00-4.00); Potassium 4.5 mmol/L (3.5-5.1); Protein, Total 7.3 g/dL (6.4-8.2); Sodium Level 137 mmol/L (136-145); Triglycerides 107 mg/dL; Very Low Density Lipoprotein 21 mg/dL (5-40)
== END | disposition home or self-care (01) ==
LOC: MFPLAB 08:45
PROVIDERS: PCP Family Medicine; Visit Provider Family Medicine
DX: E78.5 Hyperlipidemia, unspecified (principal); Z86.73 Personal history of transient ischemic attack (TIA), and cerebral infarction without residual deficits; Z12.5 Encounter for screening for malignant neoplasm of prostate
CPT/HCPCS: 36415; 80053; 80061; 84153; G0103

== ENCOUNTER → 2022-05-22 | Outpatient (CLI) | payer MEDICARE, OTHER, SELFPAY ==
--- NOTE | 2022-05-22 17:38 | SP.MBSS_ITS ---
Modified Barium Swallow - Patient Information Study Date: 05/22/22 Study Time: 13:00 Direct Billable Minutes: 70 Total Minutes procedure & reportin Diagnosis: Dysphagia, unspecified (R13.10) Referring Physician: Dave Tan Reason for Referral: Objectively assess swallow function, risk for aspiration, and determine recommendations for least restrictive diet textures and compensatory strategies to improve safety of swallow. Medical History: PMH: Hemophilia B, Hepatitis, Hyperlipidemia, Polio, Stroke (two light strokes, one 02/2022 and one ~5 years ago per pt report). He reports feeling as if drinks become caught in his throat if he drinks too quickly. He denies coughing or choking with food or drink. He stated he used to have GERD, and he takes Pepcid as needed to manage. Sinus sx November 2021. He reports increased belching and hiccups with food/drink. PCP referred him for concerns for dysphagia. Current Diet Ordered: Regular textures / Thin liquids Dentition: WNL Mental Status: WNL Respiratory Status: Oxygenating on Room Air - Penetration-Aspiration Scale Penetration-Aspiration Scale: OBJECTIVE ASSESSMENT OF SWALLOW FUNCTION (QUANTITATIVE ? PER TRIAL): PENETRATION / ASPIRATION SCALE (SUMNER): 1 = does not enter airway 2 = enters airway/above vocal folds/ejected 3 = enters airway/above vocal folds/not ejected 4 = enters airway/contacts vocal folds/ejected 5 = enters airway/contacts vocal folds/not ejected 6 = enters airway/below vocal folds/ejected 7 = enters airway/below vocal folds/not ejected despite effort 8 = enters airway/below vocal folds/no effort VIDEOFLOROSCOPIC SCALE SCORE (SUMNER): Grade I = aspiration of material that has penetrated into the laryngeal vestibule, intact cough reflex Grade II = aspiration < 10 % of the bolus, intact cough reflex Grade III = aspiration of < 10 % of the bolus, reduced cough reflex or aspiration of > 10 % of the bolus, intact cough reflex Grade IV = aspiration of > 10 % of the bolus, reduced cough reflex - Oral Phase Labial Seal: No Labial Escape Tongue Control During Bolus Hold: Posterior escape of greater than half of bolus Bolus Preparation/Mastication: Slow prolonged chewing/mashing with complete recollection Bolus Transport/Lingual Motion: Delayed initiation of tongue motion Oral Residue: Residue collection on oral structures - Pharyngeal Phase Initiation of Pharyngeal Swallow: Bolus head in pyriforms Soft Palate Elevation: Trace column of contrast/air between soft palate and pharyngeal wall Laryngeal Elevation: Partial superior movement thyroid cart/partial apprx aryt- epig petiole Anterior Hyoid Excursion: Complete anterior movement Epiglottic Movement: Complete inversion Laryngeal Vestibule Closure at Height of Swallow: Incomplete; narrow column of air/contrast in laryngeal vestibule Pharyngeal Stripping Wave: Present - diminished Pharyngoesophageal Segment Opening: Complete distension and complete duration; no obstruction of flow Tongue Base Retraction: Narrow column of contrast between tongue base & post. pharyngeal wall Pharyngeal Residue: Collection of residue within or on pharyngeal structures - Esophageal Phase Esophageal Clearance: Complete clearance - Diagnosis/Impression Diagnosis: Mild oropharyngeal phase dysphagia (R13.12) Impression: The oral phase is marked by... -Decreased bolus control, especially noted with premature posterior loss of large, sequential sips to the pyriforms prior to swallow onset. This premature l oss resulted in suboptimal bolus placement for swallow onset. -Delayed initiation of tongue motion for A-P transport. -Prolonged, but adequate mastication of cookie with piecemeal deglutition required to clear residue from oral cavity. -Collection of oral residue observed with large sips, which was seen spilling posteriorly to the pharynx after the swallow. The pharyngeal phase is marked by... -Decreased airway closure during the swallow due to decreased laryngeal elevation. -Decreased tongue base retraction and pharyngeal contraction contributing to mild pharyngeal residue after the swallow with certain consistencies. He is at increased risk to aspirate residue remaining in the pharynx after the swallow. -Laryngeal penetration of large single and sequential sips of thin liquids by cup that did not reliably eject from the laryngeal vestibule. He is at increased risk to aspirate residue remaining in the laryngeal vestibule after the swallow; however, no aspiration was observed during the study. SEE PAS scores above for full details. - Recommendations Diet: Regular Textures, Thin Liquids Compensatory Strategies: Small Bites, Small Sips, Slow Rate - Sips one at a time, Multiple Swallows - Intermittent use of double swallows, especially after large bites/sips, Sitting upright, Remain sitting upright for 30 minutes after PO intake Supervision: Assist as needed - family to assist with verbal cues as needed Recommend Repeat Modified Barium Swallow: No Need for Skilled Speech Therapy Services: Yes Comment: Will recommend the patient for outpatient dysphagia therapy to address deficits in oropharyngeal swallow function. Will recommend the patient for oropharyngeal strengthening to improve laryngeal elevation, tongue base retraction, and pharyngeal contraction (e.g. Faviola, Rigo, Effortful, CTAR). The patient would benefit from thorough education regarding diet recommendations and recommended compensatory strategies. Education Completed: 1. Described result of evaluation., 2. Pt understands evaluation & agrees with goals and treatment plan., 7. Pt requires further education on strategies & risks. - Status Active ST Patient: Active - Contact Information [facility] Speech Therapy:: Shanon Carrizales M.A. [facility] Speech-Language Pathologist [facility] [address] [place] [place] [address] [email or web address] [phone] 05/22/22 17:45
== END | disposition home or self-care (01) ==
LOC: RAD 13:02
PROVIDERS: PCP Family Medicine; Referring Provider Family Medicine; Visit Provider Family Medicine
DX: Z86.73 Personal history of transient ischemic attack (TIA), and cerebral infarction without residual deficits (principal)
CPT/HCPCS: 74230; 92611

== ENCOUNTER → 2022-06-07 | Outpatient (CLI) | payer MEDICARE, OTHER, SELFPAY | END | disposition home or self-care (01) | LOC: CVS 08:46 | PROVIDERS: PCP Family Medicine; Referring Provider Family Medicine; Visit Provider Family Medicine | DX: Z86.73 Personal history of transient ischemic attack (TIA), and cerebral infarction without residual deficits (principal) ==

== ENCOUNTER 2022-07-05 11:30 | Outpatient (RCR) | payer MEDICARE, OTHER, SELFPAY ==
--- NOTE | 2022-06-28 10:53 | ST ---
[facility] Speech Pathology [address] [place] [address] Modified Barium Swallow Study MR#: [id number] Acct: [id number] Name: REMY FINNEGAN Rep #: [id number] : 1945 76 From: Shanon Carrizales M.A., CCC-FOUNDRY PATTERNMAKER PAS Scoring for Trials Administered: Thin liquid by tsp - 1 Thin liquid by tsp Trial 2 - 1 Thin liquid by large cup sip - 3 Thin liquid by small (cued) cup sip - 2 [place] liquid by cup - 1 Honey liquid by cup - 1 Thin liquid by sequential sips by cup - 3 Pudding by tsp - 1 1/2 Cookie - 1 Thin liquid by straw (large) - 2 Thin liquid by straw - 2 Modified Barium Swallow - Patient Information Study Date: 05/22/22 Study Time: 13:00 Direct Billable Minutes: 70 Total Minutes procedure & reportin Diagnosis: Dysphagia, unspecified (R13.10) Referring Physician: Dave Tan Reason for Referral: Objectively assess swallow function, risk for aspiration, and determine recommendations for least restrictive diet textures and compensatory strategies to improve safety of swallow. Medical History: PMH: Hemophilia B, Hepatitis, Hyperlipidemia, Polio, Stroke (two light strokes, one 02/2022 and one ~5 years ago per pt report). He reports feeling as if drinks become caught in his throat if he drinks too quickly. He denies coughing or choking with food or drink. He stated he used to have GERD, and he takes Pepcid as needed to manage. Sinus sx November 2021. He reports increased belching and hiccups with food/drink. PCP referred him for concerns for dysphagia. Current Diet Ordered: Regular textures / Thin liquids Dentition: WNL Mental Status: WNL Respiratory Status: Oxygenating on Room Air - Penetration-Aspiration Scale Penetration-Aspiration Scale: OBJECTIVE ASSESSMENT OF SWALLOW FUNCTION (QUANTITATIVE ? PER TRIAL): PENETRATION / ASPIRATION SCALE (SUMNER): 1 = does not enter airway 2 = enters airway/above vocal folds/ejected 3 = enters airway/above vocal folds/not ejected 4 = enters airway/contacts vocal folds/ejected 5 = enters airway/contacts vocal folds/not ejected 6 = enters airway/below vocal folds/ejected 7 = enters airway/below vocal folds/not ejected despite effort 8 = enters airway/below vocal folds/no effort VIDEOFLOROSCOPIC SCALE SCORE (SUMNER): Grade I = aspiration of material that has penetrated into the laryngeal vestibule, intact cough reflex Grade II = aspiration < 10 % of the bolus, intact cough reflex Grade III = aspiration of < 10 % of the bolus, reduced cough reflex or aspiration of > 10 % of the bolus, intact cough reflex Grade IV = aspiration of > 10 % of the bolus, reduced cough reflex - Oral Phase Labial Seal: No Labial Escape Tongue Control During Bolus Hold: Posterior escape of greater than half of bolus Bolus Preparation/Mastication: Slow prolonged chewing/mashing with complete recollection Bolus Transport/Lingual Motion: Delayed initiation of tongue motion Oral Residue: Residue collection on oral structures - Pharyngeal Phase Initiation of Pharyngeal Swallow: Bolus head in pyriforms Soft Palate Elevation: Trace column of contrast/air between soft palate and pharyngeal wall Laryngeal Elevation: Partial superior movement thyroid cart/partial apprx aryt-epig petiole Anterior Hyoid Excursion: Complete anterior movement Epiglottic Movement: Complete inversion Laryngeal Vestibule Closure at Height of Swallow: Incomplete; narrow column of air/contrast in laryngeal vestibule Pharyngeal Stripping Wave: Present - diminished Pharyngoesophageal Segment Opening: Complete distension and complete duration; no obstruction of flow Tongue Base Retraction: Narrow column of contrast between tongue base & post. pharyngeal wall Pharyngeal Residue: Collection of residue within or on pharyngeal structures - Esophageal Phase Esophageal Clearance: Complete clearance - Diagnosis/Impression Diagnosis: Mild oropharyngeal phase dysphagia (R13.12) Impression: The oral phase is marked by... -Decreased bolus control, especially noted with premature posterior loss of large, sequential sips to the pyriforms prior to swallow onset. This premature loss resulted in suboptimal bolus placement for swallow onset. -Delayed initiation of tongue motion for A-P transport. -Prolonged, but adequate mastication of cookie with piecemeal deglutition required to clear residue from oral cavity. -Collection of oral residue observed with large sips, which was seen spilling posteriorly to the pharynx after the swallow. The pharyngeal phase is marked by... -Decreased airway closure during the swallow due to decreased laryngeal elevation. -Decreased tongue base retraction and pharyngeal contraction contributing to mild pharyngeal residue after the swallow with certain consistencies. He is at increased risk to aspirate residue remaining in the pharynx after the swallow. -Laryngeal penetration of large single and sequential sips of thin liquids by cup that did not reliably eject from the laryngeal vestibule. He is at increased risk to aspirate residue remaining in the laryngeal vestibule after the swallow; however, no aspiration was observed during the study. SEE PAS scores above for full details. - Recommendations Diet: Regular Textures, Thin Liquids Compensatory Strategies: Small Bites, Small Sips, Slow Rate - Sips one at a time, Multiple Swallows - Intermittent use of double swallows, especially after large bites/sips, Sitting upright, Remain sitting upright for 30 minutes after PO intake Supervision: Assist as needed - family to assist with verbal cues as needed Recommend Repeat Modified Barium Swallow: No Need for Skilled Speech Therapy Services: Yes Comment: Will recommend the patient for outpatient dysphagia therapy to address deficits in oropharyngeal swallow function. Will recommend the patient for oropharyngeal strengthening to improve laryngeal elevation, tongue base retraction, and pharyngeal contraction (e.g. Faviola, Rigo, Effortful, CTAR). The patient would benefit from thorough education regarding diet recommendations and recommended compensatory strategies. Education Completed: 1. Described result of evaluation., 2. Pt understands evaluation & agrees with goals and treatment plan., 7. Pt requires further education on strategies & risks. - Status Active ST Patient: Active - Contact Information [facility] Speech Therapy:: Shanon Carrizales M.A. CCC-FOUNDRY PATTERNMAKER Speech-Language Pathologist [facility] [address] [place] [address] [email or web address] [phone] 05/22/22 17:45 05/22/22 1758 <Electronically signed by Shanon Carrizales M.A. CCC-FOUNDRY PATTERNMAKER> Date/Time Shanon Carrizales M.A., CCC-FOUNDRY PATTERNMAKER Co-Signature Required for all Medicare patients Date/Time Co-Signature CC: ~
--- NOTE | 2022-06-28 17:14 | HP.SP.EV_ITS ---
History - History Date of Eval: 06/28/22 Other Relevant Medical History/Diagnoses/Surgery: Remy is a 76 year old male who was referred for a swallowing evaluation at [facility]. Pt had an MBSS completed in May which revealed mild oralpharyngeal phase dysphagia. Pt stated that he noticed slight swallowing issues in April after his stroke. 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 Smoking Status: Never smoker - Pain Is pain an issue with your current prescribed condition?: No Patient Allergies - Allergies Allergies atorvastatin Adverse Reaction (Severe, Verified 04/11/20 10:21) Rt shoulder pain pitavastatin [From Livalo] Adverse Reaction (Severe, Verified 04/11/20 10:21) muscle weakness aspirin Adverse Reaction (Verified 04/11/20 10:21) Bleeding Penicillins Adverse Reaction (Verified 04/11/20 10:21) Other prickly neck Subjective Dysphagia - Symptoms Reported Symptoms/Problems with: Difficulty Swallowing Liquids - Current Diet Solids Current Diet: Regular - Current Diet Liquids Current Liquids: Thin Fatima free water Protocol: Yes - Comments Exercises -: Pt completed effortful swallow, effortful breathhold, effortful swallow & breathhold, masko, mely, and CTAR. Pt required mod verbal cues to complete exercises. Objective Dysphagia - Administered by Administered by: Self - Thin Liquids Administred via: Cup Oral Transit: Delay > 1 seconds Bolus clearance: fully cleared Gagging: No Cough: none observed/unable to assess Pharyngeal phase: suspect pharyngeal deficits - Impact Impact on Safety & Functioning: Risk for Aspiration Comments: Per MBSS - Recommendations Swallowing Treatment: Yes - Diet Texture Recommendations Solids: Regular (Level 7) Liquids: Thin (Level 0) Fatima free water Protocol: Yes - Safety Saftey Precautions/Swallowing Recommendations (Check all that Apply): Upright Position at Least 30 Minutes After Meals, Small Sips & Bites when Eating, Multiple Swallows - Results Swallowing Diagnosis: Oropharyngeal Phase Dysphagia (R13.12) Severity: Mild Modified Barium Results Hx MBS Report Entered: Yes MBS Results (from prior exam): 06/28/22 10:53 Speech Therapy by Shanon Pink [facility] Speech Pathology [address] [place] [address] Modified Barium Swallow Study MR#: [id number] Acct: [id number] Name: REMY FINNEGAN Rep #:[id number] : 1945 76 From: Shanon Saeed, CCC-FIELD NURSE CASE MANAGER PAS Scoring for Trials Administered: Thin liquid by tsp - 1 Thin liquid by tsp Trial 2 - 1 Thin liquid by large cup sip - 3 Thin liquid by small (cued) cup sip - 2 [place] liquid by cup - 1 Honey liquid by cup - 1 Thin liquid by sequential sips by cup - 3 Pudding by tsp - 1 1/2 Cookie - 1 Thin liquid by straw (large) - 2 Thin liquid by straw - 2 Modified Barium Swallow - Patient Information Study Date: 05/22/22 Study Time: 13:00 Direct Billable Minutes: 70 Total Minutes procedure & reportin Diagnosis: Dysphagia, unspecified (R13.10) Referring Physician: Dave Tan Reason for Referral: Objectively assess swallow function, risk for aspiration, and determine recommendations for least restrictive diet textures and compensatory strategies to improve safety of swallow. Medical History: PMH: Hemophilia B, Hepatitis, Hyperlipidemia, Polio, Stroke (two light strokes, one 02/2022 and one ~5 years ago per pt report). He reports feeling as if drinks become caught in his throat if he drinks too quickly. He denies coughing or choking with food or drink. He stated he used to have GERD, and he takes Pepcid as needed to manage. Sinus sx November 2021. He reports increased belching and hiccups with food/drink. PCP referred him for concerns for dysphagia. Current Diet Ordered: Regular textures / Thin liquids Dentition: WNL Mental Status: WNL Respiratory Status: Oxygenating on Room Air - Penetration-Aspiration Scale Penetration-Aspiration Scale: OBJECTIVE ASSESSMENT OF SWALLOW FUNCTION (QUANTITATIVE ? PER TRIAL): PENETRATION / ASPIRATION SCALE (SUMNER): 1 = does not enter airway 2 = enters airway/above vocal folds/ejected 3 = enters airway/above vocal folds/not ejected 4 = enters airway/contacts vocal folds/ejected 5 = enters airway/contacts vocal folds/not ejected 6 = enters airway/below vocal folds/ejected 7 = enters airway/below vocal folds/not ejected despite effort 8 = enters airway/below vocal folds/no effort VIDEOFLOROSCOPIC SCALE SCORE (SUMNER): Grade I = aspiration of material that has penetrated into the laryngeal vestibule, intact cough reflex Grade II = aspiration < 10 % of the bolus, intact cough reflex Grade III = aspiration of < 10 % of the bolus, reduced cough reflex or aspiration of > 10 % of the bolus, intact cough reflex Grade IV = aspiration of > 10 % of the bolus, reduced cough reflex - Oral Phase Labial Seal: No Labial Escape Tongue Control During Bolus Hold: Posterior escape of greater than half of bolus Bolus Preparation/Mastication: Slow prolonged chewing/mashing with complete recollection Bolus Transport/Lingual Motion: Delayed initiation of tongue motion Oral Residue: Residue collection on oral structures - Pharyngeal Phase Initiation of Pharyngeal Swallow: Bolus head in pyriforms Soft Palate Elevation: Trace column of contrast/air between soft palate and pharyngeal wall Laryngeal Elevation: Partial superior movement thyroid cart/partial apprx aryt- epig petiole Anterior Hyoid Excursion: Complete anterior movement Epiglottic Movement: Complete inversion Laryngeal Vestibule Closure at Height of Swallow: Incomplete; narrow column of air/contrast in laryngeal vestibule Pharyngeal Stripping Wave: Present - diminished Pharyngoesophageal Segment Opening: Complete distension and complete duration; no obstruction of flow Tongue Base Retraction: Narrow column of contrast between tongue base & post. pharyngeal wall Pharyngeal Residue: Collection of residue within or on pharyngeal structures - Esophageal Phase Esophageal Clearance: Complete clearance - Diagnosis/Impression Diagnosis: Mild oropharyngeal phase dysphagia (R13.12) Impression: The oral phase is marked by... -Decreased bolus control, especially noted with premature posterior loss of large, sequential sips to the pyriforms prior to swallow onset. This premature loss resulted in suboptimal bolus placement for swallow onset. -Delayed initiation of tongue motion for A-P transport. -Prolonged, but adequate mastication of cookie with piecemeal deglutition required to clear residue from oral cavity. -Collection of oral residue observed with large sips, which was seen spilling posteriorly to the pharynx after the swallow. The pharyngeal phase is marked by... -Decreased airway closure during the swallow due to decreased laryngeal elevation. -Decreased tongue base retraction and pharyngeal contraction contributing to mild pharyngeal residue after the swallow with certain consistencies. He is at increased risk to aspirate residue remaining in the pharynx after the swallow. -Laryngeal penetration of large single and sequential sips of thin liquids by cup that did not reliably eject from the laryngeal vestibule. He is at increased risk to aspirate residue remaining in the laryngeal vestibule after the swallow; however, no aspiration was observed during the study. SEE PAS scores above for full details. - Recommendations Diet: Regular Textures, Thin Liquids Compensatory Strategies: Small Bites, Small Sips, Slow Rate - Sips one at a time, Multiple Swallows - Intermittent use of double swallows, especially after large bites/sips, Sitting upright, Remain sitting upright for 30 minutes after PO intake Supervision: Assist as needed - family to assist with verbal cues as needed Recommend Repeat Modified Barium Swallow: No Need for Skilled Speech Therapy Services: Yes Comment: Will recommend the patient for outpatient dysphagia therapy to address deficits in oropharyngeal swallow function. Will recommend the patient for oropharyngeal strengthening to improve laryngeal elevation, tongue base retraction, and pharyngeal contraction (e.g. Faviola, Mely, Effortful, CTAR). The patient would benefit from thorough education regarding diet recommendations and recommended compensatory strategies. Education Completed: 1. Described result of evaluation., 2. Pt understands evaluation & agrees with goals and treatment plan., 7. Pt requires further education on strategies & risks. - Status Active ST Patient: Active - Contact Information [facility] Speech Therapy:: Shanon Carrizales M.A. [facility]-FIELD NURSE CASE MANAGER Speech-Language Pathologist [address] [place] [address] [email or web address] [phone] 05/22/22 17:45 05/22/22 1758 <Electronically signed by Shanon Carrizales M.A., CCC-FIELD NURSE CASE MANAGER> Date/Time Shanon Carrizales M.A. CCC-FIELD NURSE CASE MANAGER Co-Signature Required for all Medicare patients Date/Time Co-Signature CC: ~ Initialized on 06/28/22 10:53 - END OF NOTE Swallowing Performance Scale - Swallowing Performance Scale Swallowing Performance Scale Result: 3 Mild Plan - Plan Plan: Will rx Pt for skilled outpatient tx to address deficits in oropharyngeal dysphagia. Pt would benefit from training and education re: diet tolerance checks, and swallowing exercises to aid in oropharyngeal strengthening. Without skilled intervention, Pt is at risk for consuming a restrictive diet putting him at risk for aspiration pneumonia and atrophy of laryngeal musculature. - Recommendations MBS: No Treatment Warranted: Yes Treatment Warranted: Dysphagia - Progress Prognosis: Excellent - Frequency Additional (Frequency): 1 session in one week. 2nd session 2 weeks afterwards. 3rd session 2 weeks afterwards if needed Duration: 6 Weeks Visits in this POC: 3 - Goals that are Established Determination:: Goals will be added/modified as deemed necessary and appropriate. Therapy will be discontinued when results of re-evaluation indicate therapy is no longer needed or lack of progress has been documented. - Goal #1-5 Goal #1: Pt will utilize swallowing strategies re: small sips & bites, multiple swallows, remaining upright after meals and tolerate least restrictive diet with no overt s/s of aspiration/penetration to aid in safe consumption of solid/liquids independently. Goal #2: Pt will complete oropharyngeal exercises re: effortful swallow, effortful breathhold, effortful swallow & breathhold, masko, mely, and CTAR for 10 reps, 2-3x/day independently to improve tongue base retraction, pharygneal constriction, and hyolaryngeal elevation and excursion. Education - Patient has Indicated that the Following Identified Educational Needs: None The Patient has indicated that they have no educational or learning abilities that may effect their care.: Yes - Patient Instruction Patient Education: Diagnosis, Treatment Plan, Goals Person Taught: Patient Response to teaching: Return demonstration, Verbalize understanding
--- NOTE | 2022-08-13 12:39 | HP.SP.DC_ITS ---
ST Discharge Summary - Discharged: Discharge: Pt was seen for a swallowing evaluation at [facility] on 06/28/22 s/p CVA. Pt attended 1 additional session to target oropharyngeal strengthening, diet tolerance, implementation of compensatory strategies. Pt is being discharged on this date, 08/13/22, due to no additional sessions between scheduled/attended following the last visit. Thank you for letting me participate in your plan of care. Will reevaluate at Pt?s request following script from physician.
== END 2022-07-05 19:00 | disposition home or self-care (01) ==
LOC: SP 11:30
PROVIDERS: PCP Family Medicine; Referring Provider Family Medicine; Visit Provider Family Medicine
DX: I69.991 Dysphagia following unspecified cerebrovascular disease (principal); R13.12 Dysphagia, oropharyngeal phase
CPT/HCPCS: 92526; 92610

== ENCOUNTER → 2022-07-11 | Outpatient (CLI) | payer MEDICARE, OTHER, SELFPAY ==
--- NOTE | 2022-07-11 09:55 | CDU_ITS ---
Reason For Study: CVA Rt. Velocities/BP Lt. Velocities/BP Prox CCA 88.6/11.7 cm/sec. Prox CCA 204.5/12.7 cm/sec. Mid CCA 84.2/14.9 cm/sec. Mid CCA 138.6/25.4 cm/sec. Dist CCA 80.9/12.7 cm/sec. Dist CCA 83.8/16.3 cm/sec. Prox ICA 73.6/12.2 cm/sec. Prox ICA 100.3/30.9 cm/sec. Mid ICA 77.2/15.8 cm/sec. Mid ICA 77.2/19.5 cm/sec. Dist ICA 51.5/14.6 cm/sec. Dist ICA 83.4/23.2 cm/sec. Rt. ICA/CCA = 77.2/84.2=0.92. Lt. ICA/CCA = 100.9/138.6=0.72. Prox ECA 112.5/15.7 cm/sec. Prox ECA 142.3/19.9 cm/sec. Rt. Vert. 44.1/12.2 cm/sec. Lt. Vert. 20.3/6.7 cm/sec. Right Extracranial There is homogeneous, smooth atherosclerotic plaque noted in the right common carotid artery. There is heterogeneous, smooth atherosclerotic plaque noted in the right internal carotid artery. There is intimal thickening but no significant atherosclerotic plaque noted in the right external carotid artery. Antegrade flow is noted in the right vertebral artery. There is heterogeneous, irregular atherosclerotic plaque noted in the left bulb. Left Extracranial There is homogeneous, smooth atherosclerotic plaque noted in the left common carotid artery. There is heterogeneous, smooth atherosclerotic plaque noted in the left internal carotid artery. There is homogeneous, smooth atherosclerotic plaque noted in the left external carotid artery. Antegrade flow is noted in the left vertebral artery. There is homogeneous, irregular atherosclerotic plaque noted in the left bulb. Procedure Carotid Duplex 29388. This is a Carotid Duplex examination using B-mode, color flow and specral Doppler. Exam performed in department. VL/Carotid Duplex Ultrasound Interpretation Summary Mild (<50%) stenosis right extracranial internal carotid. Mild (<50%) stenosis left extracranial internal carotid. Flow within the vertebral arteries is antegrade bilaterally. Irregular atherosclerotic plaque is noted in the carotid bulbs bilaterally, which does no t appear to be hemodynamically significant. Ordering Physician: Thang Tan Referring Physician: Thang Tan Performed By: Leatha Love, LUIZ, RVT
== END | disposition home or self-care (01) ==
LOC: CVS 09:50
PROVIDERS: PCP Family Medicine; Referring Provider Family Medicine; Visit Provider Family Medicine
DX: I65.23 Occlusion and stenosis of bilateral carotid arteries (principal); I63.9 Cerebral infarction, unspecified
CPT/HCPCS: 93880

== ENCOUNTER → 2022-09-13 | Outpatient (CLI) | payer MEDICARE, OTHER, SELFPAY ==
--- NOTE | 2022-09-13 09:44 | RAD_ITS ---
STUDY: X-RAY - RIGHT FOOT CLINICAL: Male, 76 years old. Contusion after having metal was dropped on foot. TECHNIQUE: 3 view(s) of the foot. COMPARISON: None. FINDINGS: Osteopenia. Anterior calcaneal spur. Mild arthrosis of the tibiotalar and subtalar joints. Mild arthrosis of the midfoot. Mild arthrosis of the TMT joints with cystic changes in the second cuneiform and the base of the third metatarsal. Moderate arthrosis of the MTP and IP joints with hammertoe deformities. Minimal hallux valgus deformity. Irregularity of the head of the fifth metatarsal. Normal soft tissues. RAD/Foot min 3 Views IMPRESSION: Osteopenia with osteoarthritic changes as described, most marked at the third TMT joint. Irregularity of the head of the fifth metatarsal without an acute abnormality. Electronically Signed: Bruno Vail, at 10:02 [facility] ,
== END | disposition home or self-care (01) ==
LOC: MTRAD 09:43
PROVIDERS: PCP Family Medicine; Referring Provider Family Medicine; Visit Provider Family Medicine
DX: M19.071 Primary osteoarthritis, right ankle and foot (principal); M77.31 Calcaneal spur, right foot; S90.31XS Contusion of right foot, sequela; M20.11 Hallux valgus (acquired), right foot; M85.871 Other specified disorders of bone density and structure, right ankle and foot; M20.41 Other hammer toe(s) (acquired), right foot
CPT/HCPCS: 73630

== ENCOUNTER → 2023-04-23 | Outpatient (CLI) | payer MEDICARE, OTHER, SELFPAY ==
[2023-04-23 10:26] LABS: AST(SGOT) 21 U/L (15-37); Alanine Aminotransfer ALT/SGPT 34 U/L (16-61); Albumin, Serum 3.5 g/dL (3.2-5.0); Alkaline Phosphatase 69 U/L (45-117); Bilirubin, Direct 0.18 mg/dL (0.00-0.30); Cholesterol 158 mg/dL (200); Globulin 3.9 g/dL (2.2-4.2); High Density Lipoprotein 52 mg/dL; Protein, Total 7.4 g/dL (6.4-8.2); Triglycerides 92 mg/dL; Very Low Density Lipoprotein 18 mg/dL (5-40)
[2023-04-24 12:10] LABS: ALB/GLOB Ratio 0.9 RATIO (0.9-2.4); AST(SGOT) 24 U/L (15-37); Alanine Aminotransfer ALT/SGPT 34 U/L (16-61); Albumin, Serum 3.6 g/dL (3.2-5.0); Alkaline Phosphatase 70 U/L (45-117); Anion Gap 2 (5-15); BUN 16 mg/dL (7-18); BUN/Creat Ratio 20.1 RATIO (10-20); Chloride 110 mmol/L (98-107); EST Glomerular Filtration Rate 100 mL/min (>60); Est Glom Filt Rate - Afr Amer 121 mL/min (>60); Globulin 3.9 g/dL (2.2-4.2); Glucose 91 mg/dL (74-106); Potassium 4.5 mmol/L (3.5-5.1); Protein, Total 7.5 g/dL (6.4-8.2); Sodium Level 139 mmol/L (136-145)
== END | disposition home or self-care (01) ==
LOC: MTLAB 08:43
PROVIDERS: PCP Family Medicine; Referring Provider Family Medicine; Visit Provider Family Medicine
DX: E78.5 Hyperlipidemia, unspecified (principal)
CPT/HCPCS: 36415; 80053; 80061; 80076

== ENCOUNTER → 2024-03-04 | Outpatient (CLI) | payer MEDICARE, OTHER, SELFPAY ==
--- NOTE | 2024-03-04 11:10 | RAD_ITS ---
STUDY: X-RAY - CERVICAL SPINE REASON FOR EXAM: Male, 78 years old. Pain with decreased motion. TECHNIQUE: 5 view(s) of the cervical spine were obtained on 7 images. COMPARISON: None FINDINGS: Osteopenia. Normal anterior atlantoaxial articulation. Normal odontoid process. Normal cervical lordosis. Diffuse moderate to marked uncovertebral and facet sclerosis. Intervertebral disc space narrowing most marked at C5-6, C6-7 and C7-T1. Anterior bony neural foraminal encroachment at C5-C6 to C7-T1 bilaterally. Normal soft tissues. RAD/Cerv Spine 4 or 5 Views IMPRESSION: Osteopenia with moderate lower cervical spondylosis as described. Electronically Signed: Bruno Vail MD at 15:19 EDT ,
== END | disposition home or self-care (01) ==
LOC: MTRAD 11:08
PROVIDERS: PCP Family Medicine; Referring Provider Family Medicine; Visit Provider Family Medicine
DX: M43.6 Torticollis (principal)
CPT/HCPCS: 72050

== ENCOUNTER → 2024-05-15 | Outpatient (CLI) | payer MEDICARE, OTHER, SELFPAY ==
[2024-05-15 10:34] LABS: Erythrocyte Sedimentation Rate 11 mm/hr (0-20); Hematocrit 37.9 % (40-54); Hemoglobin 12.5 g/dL (13.0-16.5); Mean Corpuscular Hgb 30.2 pg (27.0-32.0); Mean Corpuscular Volume 91.5 fL (80-94); Mean Platelet Vol. 9.8 fl (6.2-12.0); Platelet Count 204 K/mm3 (150-450); RBC Distribution Width CV 13.7 % (11.6-14.6); RBC Distribution Width SD 45.9 fl (35.1-43.9); Red Blood Count 4.14 M/mm3 (4.6-6.2); White Blood Count 6.5 K/mm3 (4.4-11.0)
[2024-05-15 11:00] LABS: Vitamin B12 285 pg/mL (211-911); Vitamin D,25 Hydroxy 15.9 ng/mL
[2024-05-15 11:21] LABS: ALB/GLOB Ratio 0.9 RATIO (0.9-2.4); AST(SGOT) 28 U/L (15-37); Alanine Aminotransfer ALT/SGPT 46 U/L (16-61); Albumin, Serum 3.4 g/dL (3.2-5.0); Alkaline Phosphatase 71 U/L (45-117); Anion Gap 4 (5-15); BUN 24 mg/dL (7-18); BUN/Creat Ratio 30.5 RATIO (10-20); Calcium,Total 9.5 mg/dL (8.5-10.1); Chloride 110 mmol/L (98-107); Cholesterol 159 mg/dL (200); Creatinine, Serum 0.79 mg/dL (0.70-1.30); EST Glomerular Filtration Rate 101 mL/min (>60); Est Glom Filt Rate - Afr Amer 123 mL/min (>60); Ferritin 117 ng/mL (26-388); Globulin 3.9 g/dL (2.2-4.2); Glucose 99 mg/dL (74-106); High Density Lipoprotein 48 mg/dL; Iron 85 ug/dL (65-175); Potassium 4.6 mmol/L (3.5-5.1); Protein, Total 7.3 g/dL (6.4-8.2); Sodium Level 138 mmol/L (136-145); Triglycerides 104 mg/dL; Very Low Density Lipoprotein 21 mg/dL (5-40)
== END | disposition home or self-care (01) ==
LOC: MTLAB 09:51
PROVIDERS: PCP Family Medicine; Referring Provider Family Medicine; Visit Provider Family Medicine
DX: E78.5 Hyperlipidemia, unspecified (principal); R53.83 Other fatigue; R41.3 Other amnesia
CPT/HCPCS: 36415; 80053; 80061; 82306; 82607; 82728; 83540; 84403; 84443; 85027; 85652